=== PATIENT | male | born 1985 | race Hispanic/Latino ===

== ENCOUNTER 2021-11-17 21:43 | Emergency (ER) | payer OTHER ==
[~2021-11-17] VITALS: Ht 188 cm; Wt 87.1 kg
[2021-11-17] MEDS ORDERED: ALBUTEROL INHALER 90MCG/INH IH ONE (22:00)
[2021-11-17] MEDS ORDERED: IBUPROFEN 800 MG TAB PO ONE (22:00)
[2021-11-17] MEDS ORDERED: GUAIFENESIN-CODEINE 5 ML SYRUP PO ONE (22:00)
[2021-11-17] MEDS ORDERED: ACETAMINOPHEN 500 MG TABLET PO ONE (22:00)
[2021-11-17] MEDS ORDERED: D-ME1POW16 PO (22:53)
[2021-11-17] MEDS ORDERED: IBUP-2071 PO (22:53)
[2021-11-17] MEDS ORDERED: ALBU8.5H8 IH (22:58)
[2021-11-17 23:00] VITALS: BP 124/78
== END 2021-11-17 23:08 | disposition home or self-care (01) ==
LOC: EDH 21:43
DX: U07.1 COVID-19 (principal); J06.9 Acute upper respiratory infection, unspecified; Z79.1 Long term (current) use of non-steroidal anti-inflammatories (NSAID)
CPT/HCPCS: 99284; 87635; 87804 ×2; C9803